=== PATIENT | female | born 1950 | race Asian ===

== ENCOUNTER 2018-09-24 23:27 | Emergency (ER) | payer MEDICARE ==
[~2018-09-24] VITALS: Ht 157.5 cm; Wt 43.2 kg
[2018-09-24 23:34] VITALS: TEMP 98.3
[2018-09-25 00:17] LABS: COLLECTION METHOD CLEAN CATCH
[2018-09-25 00:20] LABS: BASO # 0.1 (0.0-0.2); BASO % 0.8 % (0.0-2.0); EOS # 0.7 (0.0-0.7); GRAN # 3.9 (1.4-6.5); GRAN % 50.9 % (42.2-75.2); HEMOGLOBIN 11.5 g/dl (12.5-16.0); LYMPH # 2.3 (1.2-3.4); LYMPH % 29.8 % (20.0-51.0); MEAN CELL VOLUME 60 fl (80.0-100.0); MEAN CORPUSCULAR HEMOGLOBIN 20 pg (27.0-31.0); MEAN CORPUSCULAR HGB CONC 33 g/dl (33.0-37.0); MEAN PLATELET VOLUME 8.6 fl (7.4-10.4); MONO # 0.7 (0.1-0.6); MONO % 8.7 % (1.7-9.3); PLATELET COUNT 276 K/mm3 (130-400); RED BLOOD COUNT 5.83 M/mm3 (4.10-5.30)
[2018-09-25 00:22] LABS: HEMATOCRIT 34.9 % (37.0-47.0)
[2018-09-25 00:23] LABS: PH 6 (5-8); SQUAMOUS EPITHELIAL None Seen /hpf; URINE APPEARANCE Clear; URINE BACTERIA None Seen /hpf; URINE BILIRUBIN Negative (NEGATIVE); URINE BLOOD Negative (NEGATIVE); URINE COLOR Straw; URINE GLUCOSE 2+ (NEGATIVE); URINE KETONE Negative (NEGATIVE); URINE LEUKOCYTE ESTERASE Negative (NEGATIVE); URINE NITRATE Negative (NEGATIVE); URINE PROTEIN(semi-quant) Negative (NEGATIVE); URINE RBC 0-2 /hpf; URINE UROBILINOGEN Negative (NEGATIVE)
[2018-09-25 00:30] LABS: PROTHROMBIN TIME 11.1 SECONDS (9.7-12.8)
[2018-09-25 00:33] LABS: ALANINE AMINOTRANSFERASE 18 U/L (9-52); ALKALINE PHOSPHATASE 145 U/L (50-136); ANION GAP 10 mmol/L (7-16); AST,SGOT 26 U/L (15-37); BILIRUBIN,TOTAL 0.4 mg/dL (0.0-1.0); BLOOD UREA NITROGEN 17 mg/dL (7-17); CALCIUM 9.3 mg/dL (8.4-10.2); CARBON DIOXIDE 27 mmol/L (22-30); CHLORIDE 101 mmol/L (98-107); CREATININE, serum 0.79 (0.52-1.25); GLUCOSE 367 mg/dL (74-106); POTASSIUM 3.7 mmol/L (3.4-5.0); SODIUM 138 mmol/L (137-145); TOTAL PROTEIN 7.4 gm/dL (6.4-8.2)
[2018-09-25 00:37] LABS: C-REACTIVE PROTEIN < 0.5 mg/dL (0.0-0.9)
[2018-09-25 00:43] LABS: TROPONIN-I < 0.012 ng/mL (0.000-0.035)
[2018-09-25] MEDS ORDERED: ZITHROMAX500 M2 PO (01:49)
[2018-09-25] MEDS ORDERED: GLUCOPHAGE500 MG/TAB PO (02:07)
[2018-09-25 02:15] VITALS: BP 119/60; PULSE 79
== END 2018-09-25 02:17 | disposition home or self-care (01) ==
LOC: COL.ER 23:27
PROVIDERS: Emergency Medicine
DX: E11.65 Type 2 diabetes mellitus with hyperglycemia (principal); J40 Bronchitis, not specified as acute or chronic; F17.210 Nicotine dependence, cigarettes, uncomplicated
CPT/HCPCS: J1815

== ENCOUNTER → 2018-11-04 | Outpatient (CLI) | payer MEDICARE ==
[~2018-11-04] MED LIST: GLUCOPHAGE500 MG/TAB PO; ZITHROMAX500 M2 PO
[2018-11-04 17:59] LABS: BASO # 0.1 (0.0-0.2); BASO % 1.1 % (0.0-2.0); EOS # 0.7 (0.0-0.7); GRAN # 3.9 (1.4-6.5); GRAN % 48.5 % (42.2-75.2); HEMOGLOBIN 10.8 g/dl (12.5-16.0); LYMPH # 2.7 (1.2-3.4); LYMPH % 33.5 % (20.0-51.0); MEAN CELL VOLUME 60 fl (80.0-100.0); MEAN CORPUSCULAR HEMOGLOBIN 20 pg (27.0-31.0); MEAN CORPUSCULAR HGB CONC 33 g/dl (33.0-37.0); MONO # 0.6 (0.1-0.6); MONO % 7.3 % (1.7-9.3); PLATELET COUNT 316 K/mm3 (130-400); RED BLOOD COUNT 5.52 M/mm3 (4.10-5.30); REDCELL DISTRIBUTION WIDTH-CV 15.1 % (11.5-14.5)
[2018-11-04 18:08] LABS: HEMATOCRIT 33.1 % (37.0-47.0)
[2018-11-04 18:31] LABS: ERYTHROCYTE SEDIMENTATION RATE 14 mm/hr (0-30)
== END ==
LOC: ZCOL.LAB 16:12
PROVIDERS: Family Medicine
DX: R51 Headache (principal)

== ENCOUNTER → 2018-11-24 | Outpatient (CLI) | payer MEDICARE ==
[2018-11-24 17:47] LABS: COLLECTION METHOD CLEAN CATCH
[2018-11-24 18:20] LABS: PH 6 (5-8); SQUAMOUS EPITHELIAL 0-2 /hpf; URINE APPEARANCE Clear; URINE BACTERIA None Seen /hpf; URINE BILIRUBIN Negative (NEGATIVE); URINE BLOOD Negative (NEGATIVE); URINE COLOR Straw; URINE GLUCOSE 3+ (NEGATIVE); URINE KETONE Negative (NEGATIVE); URINE LEUKOCYTE ESTERASE Negative (NEGATIVE); URINE NITRATE Negative (NEGATIVE); URINE PROTEIN(semi-quant) Negative (NEGATIVE); URINE RBC 0-2 /hpf; URINE UROBILINOGEN Negative (NEGATIVE); URINE WBC 0-2 /hpf
== END ==
LOC: ZCOL.LAB 16:47
PROVIDERS: Family Medicine
DX: N89.8 Other specified noninflammatory disorders of vagina (principal); R30.0 Dysuria

== ENCOUNTER → 2018-12-24 | Outpatient (CLI) | payer MEDICARE | LOC: ZCOL.LAB 16:54 | DX: L02.91 Cutaneous abscess, unspecified (principal) ==

== ENCOUNTER → 2019-04-28 | Outpatient (CLI) | payer MEDICARE ==
[2019-04-28 17:10] LABS: BASO # 0.1 (0.0-0.2); EOS # 0.6 (0.0-0.7); EOS % 6.6 % (0-4.0); GRAN # 4.4 (1.4-6.5); GRAN % 50.5 % (42.2-75.2); HEMOGLOBIN 11.7 g/dl (12.5-16.0); MEAN CELL VOLUME 60 fl (80.0-100.0); MEAN CORPUSCULAR HEMOGLOBIN 20 pg (27.0-31.0); MEAN CORPUSCULAR HGB CONC 33 g/dl (33.0-37.0); MONO # 0.7 (0.1-0.6); MONO % 7.6 % (1.7-9.3); PLATELET COUNT 266 K/mm3 (130-400); RED BLOOD COUNT 5.93 M/mm3 (4.10-5.30); REDCELL DISTRIBUTION WIDTH-CV 15.3 % (11.5-14.5)
[2019-04-28 17:12] LABS: HEMATOCRIT 35.5 % (37.0-47.0)
[2019-04-28 17:34] LABS: ALBUMIN 4.8 gm/dL (3.5-5.0); BILIRUBIN,TOTAL 0.5 mg/dL (0.0-1.0); CALCIUM 9.9 mg/dL (8.4-10.2); CREATININE, serum 0.56 (0.52-1.25); POTASSIUM 4.1 mmol/L (3.4-5.0); TOTAL PROTEIN 8.2 gm/dL (6.4-8.2)
[2019-04-28 18:04] LABS: THYROID STIMULATING HORMONE 5.66 uIU/mL (0.465-4.680)
== END ==
LOC: ZCOL.LAB 16:57
PROVIDERS: Family Medicine
DX: L65.9 Nonscarring hair loss, unspecified (principal); E11.9 Type 2 diabetes mellitus without complications